=== PATIENT | male | born 1945 | race Two or more races ===

== ENCOUNTER 2017-07-15 16:55 | Observation (INO) | payer OTHER, MEDICARE ==
[~2017-07-15] VITALS: Ht 157.5 cm; Wt 63.9 kg
[~2017-07-15 16:55] MED LIST: ASPI-1265 PO; ATOR-2 PO; CHOL100044 PO; GABA-532 PO; HYDR-3964 PO; ISOS20TA6 PO; KRIL500C PO; LOSA25TA96 PO; METF500T PO; METO25TA6 PO; NITR0.4T48 SL; PANT40TA39 PO; SERT25TA PO; TICA90TA PO; TRAZ-146 PO
[2017-07-15 17:26] LABS: BASOPHILS % (AUTO) 0.3 % (0-1); EOSINOPHILS # (AUTO) 0.1 X10'3 (0-0.9); EOSINOPHILS % (AUTO) 1.9 % (0-6); HEMATOCRIT 38.4 % (42.0-52.0); HEMOGLOBIN 13.2 g/dl (14.0-17.9); LYMPHOCYTES # (AUTO) 1.1 X10'3 (1.1-4.8); LYMPHOCYTES % (AUTO) 25.1 % (21-51); MEAN CORPUSCULAR HEMOGLOBIN 30.5 PG (27.0-31.0); MEAN CORPUSCULAR HGB CONC 34.5 % (33.0-36.5); MEAN CORPUSCULAR VOLUME 88.5 FL (78-98); MEAN PLATELET VOLUME 11.4 FL (7.4-10.4); MONOCYTES # (AUTO) 0.3 X10'3 (0-0.9); MONOCYTES % (AUTO) 7.2 % (2-12); NEUTROPHILS % (AUTO) 65.5 % (42-75); PLATELET COUNT 107 X10'3 (140-440); RED BLOOD COUNT 4.34 X10'6 (4.70-6.10); RED CELL DISTRIBUTION WIDTH 15.9 % (11.5-14.5); WHITE BLOOD COUNT 4.6 X10'3 (4.5-11.0)
[2017-07-15 17:37] LABS: INR 1.1 INR; PARTIAL THROMBOPLASTIN TIME 29 SECONDS (22-32); PROTHROMBIN TIME 11.5 SECONDS (9.0-12.0)
[2017-07-15 17:41] LABS: ALANINE AMINOTRANSFERASE 64 U/L (12-78); ALBUMIN 3.4 G/DL (3.4-5.0); ALBUMIN/GLOBULIN RATIO 0.8 (1.1-1.5); ALKALINE PHOSPHATASE 189 IU/L (46-116); ANION GAP 8 (8-16); ASPARTATE AMINO TRANSFERASE 62 U/L (10-37); BILIRUBIN,TOTAL 0.5 MG/DL (0.1-1.0); BLOOD UREA NITROGEN 13 MG/DL (7-18); BUN/CREATININE RATIO 10.1 (5.4-32.0); CALCIUM 8.7 MG/DL (8.5-10.1); CHLORIDE 97 MMOL/L (99-107); CREATININE 1.29 MG/DL (0.60-1.10); POTASSIUM 4.2 MMOL/L (3.5-5.1); SODIUM 131 MMOL/L (135-145); TOTAL CARBON DIOXIDE 26.1 MMOL/L (24-32); TOTAL PROTEIN 7.7 G/DL (6.4-8.2); eGFR 55 ML/MIN
[2017-07-15 17:47] LABS: GLUCOSE 481 MG/DL (70-104)
[2017-07-15] MEDS ORDERED: nitroGLYCERIN 0.4mg SUBLingual tab SL PRN ×2 (19:25→21:15)
[2017-07-15] MEDS ORDERED: aspirin 81mg tab.chew PO ONE (19:25)
[2017-07-15] MEDS ORDERED: RANO10003 PO (20:35)
[2017-07-15] MEDS ORDERED: acetaminophen 325mg tablet PO PRN (21:10)
[2017-07-15] MEDS ORDERED: ondansetron/PF 4mg/2ml inj IV PRN (21:10)
[2017-07-15] MEDS ORDERED: regadenoson 0.4mg/5ml syringe IV PRN (21:15)
[2017-07-15] MEDS ORDERED: glucagon, human recombinant 1mg kit SUBCUT PRN (21:15)
[2017-07-15] MEDS ORDERED: MESSAGE TO PHARMACY PO ONE (21:15)
[2017-07-15] MEDS ORDERED: metoprolol tartrate 1mg/ml inj IV PRN (21:15)
[2017-07-15] MEDS ORDERED: dextrose ORAL solution 15 GM/59 ML bottle PO PRN ×2 (21:15)
[2017-07-15] MEDS ORDERED: dextrose 50%-water 50ml dispensing syringe IV PRN ×2 (21:15)
[2017-07-15] MEDS ORDERED: aminophylline 250mg/10ml inj. IV PRN (21:15)
[2017-07-15 22:03] LABS: HEMOGLOBIN A1C 9.3 % (4.5-6.2)
[2017-07-16] VITALS (26 sets, daily range): BP systolic 105–151; BP diastolic 58–86
[2017-07-16 04:50] LABS: BASOPHILS % (AUTO) 0.5 % (0-1); EOSINOPHILS # (AUTO) 0.2 X10'3 (0-0.9); EOSINOPHILS % (AUTO) 3.1 % (0-6); HEMATOCRIT 36.3 % (42.0-52.0); HEMOGLOBIN 12.9 g/dl (14.0-17.9); LYMPHOCYTES # (AUTO) 1.7 X10'3 (1.1-4.8); LYMPHOCYTES % (AUTO) 33.2 % (21-51); MEAN CORPUSCULAR HGB CONC 35.6 % (33.0-36.5); MEAN PLATELET VOLUME 9.6 FL (7.4-10.4); MONOCYTES # (AUTO) 0.4 X10'3 (0-0.9); MONOCYTES % (AUTO) 7.9 % (2-12); NEUTROPHILS # (AUTO) 2.8 X10'3 (1.8-7.7); NEUTROPHILS % (AUTO) 55.3 % (42-75); PLATELET COUNT 111 X10'3 (140-440); RED BLOOD COUNT 4.18 X10'6 (4.70-6.10); RED CELL DISTRIBUTION WIDTH 15.7 % (11.5-14.5); WHITE BLOOD COUNT 5.1 X10'3 (4.5-11.0)
[2017-07-16 05:08] LABS: ALBUMIN 3.1 G/DL (3.4-5.0); ANION GAP 9 (8-16); BLOOD UREA NITROGEN 13 MG/DL (7-18); CALCIUM 8.8 MG/DL (8.5-10.1); CHLORIDE 102 MMOL/L (99-107); CHOL/HDL RATIO 2.4 (0.00-4.99); CHOLESTEROL 107 MG/DL (0-200); GLUCOSE 257 MG/DL (70-104); HDL CHOLESTEROL 45 MG/DL (35-60); LDL CHOLESTEROL 37 MG/DL (50-100); POTASSIUM 4.1 MMOL/L (3.5-5.1); SODIUM 136 MMOL/L (135-145); TOTAL CARBON DIOXIDE 25.1 MMOL/L (24-32); TRIGLYCERIDES 102 MG/DL (20-135); eGFR 73 ML/MIN
[2017-07-16] MEDS ORDERED: non-formulary drug (Atorvastatin Calcium 1 TAB) PO SCH (08:00)
[2017-07-16] MEDS ORDERED: isosorbide mononitrate 30mg tab.SR.24H PO SCH ×2 (08:00→18:54)
[2017-07-16] MEDS ORDERED: ISOSORBIDE MONONITRATE 60 MG PO SCH (08:00)
[2017-07-16] MEDS ORDERED: regadenoson 0.4mg/5ml syringe IV ONE (09:10)
[2017-07-16] MEDS ORDERED: aminophylline inj. 10 ML IV ONE (09:10)
[2017-07-16] MEDS: atorvastatin 20mg tablet PO SCH (11:54)
[2017-07-16] MEDS: aspirin 81mg tablet.DR PO SCH (11:54)
[2017-07-16] MEDS: ticagrelor 90mg tablet PO SCH ×2 (11:54→21:09)
[2017-07-16] MEDS: losartan 25mg tablet PO SCH (11:54)
[2017-07-16] MEDS: gabapentin 300mg capsule PO SCH (11:55)
[2017-07-16] MEDS: sertraline 50mg tablet PO SCH (11:55)
[2017-07-16] MEDS: pantoprazole 40mg Tablet.DR PO SCH ×2 (11:55→21:10)
[2017-07-16] MEDS: metoprolol tartrate 12.5mg (1/2 tablet) PO SCH ×2 (11:55→21:08)
[2017-07-16] MEDS: insulin Lispro (HumaLOG) vial - multi-dose SQ SCH (13:39)
[2017-07-16] MEDS ORDERED: LIDOcaine 1%/PF (10mg/ml) 5ml vial ONE (16:58)
[2017-07-16] MEDS ORDERED: fentaNYL/PF 50MCG/1 ML 2ML syringe ONE (16:58)
[2017-07-16] MEDS ORDERED: midazolam 2 mg/2 ml injection ONE (16:58)
[2017-07-16] MEDS ORDERED: nitroGLYCERIN-Tridil 50MG/D5W 250 ML IV ONE (16:58)
[2017-07-16] MEDS ORDERED: heparin 1,000unit/ml 10ml vial 10 ML ONE (16:59)
[2017-07-16] MEDS ORDERED: iohexol 350MG/ML 100ml bottle IV ONE ×2 (16:59→17:45)
[2017-07-16] MEDS ORDERED: iohexol 350 MG/ML 50ML vial IV ONE (16:59)
[2017-07-16] MEDS ORDERED: proCHLORperazine 10 MG/2 ml inj IV PRN (19:00)
[2017-07-16] MEDS ORDERED: cyclobenzaprine 10mg tablet PO PRN (19:00)
[2017-07-16] MEDS ORDERED: acetaminophen 325mg tablet PO PRN (19:00)
[2017-07-16] MEDS ORDERED: magnesium hydroxide 30ml (MOM) UD suspension PO PRN (19:00)
[2017-07-16] MEDS ORDERED: normal saline 1000ml 1,000 ML IV SCH (19:05)
[2017-07-16] MEDS ORDERED: OXAZEpam 15mg capsule PO PRN (19:05)
[2017-07-16] MEDS: morphine 4 MG/ML inj SYRINge IV PRN ×3 (20:00→23:01)
[2017-07-16] MEDS ORDERED: insulin glargine (Lantus) pen - multi-dose SQ SCH (21:00)
[2017-07-16] MEDS ORDERED: gabapentin 300mg capsule PO SCH (21:00)
[2017-07-16] MEDS: docusate sod 100mg capsule PO SCH (21:09)
[2017-07-16] MEDS: LIDOCAINE 5% OINTMENT 35GM TP SCH (23:02)
[2017-07-17] MEDS: morphine 4 MG/ML inj SYRINge IV PRN ×3 (00:12→09:46)
[2017-07-17 03:00] VITALS: BP 105/64
[2017-07-17 05:34] LABS: BASOPHILS % (AUTO) 0.3 % (0-1); EOSINOPHILS # (AUTO) 0.2 X10'3 (0-0.9); EOSINOPHILS % (AUTO) 2.3 % (0-6); HEMATOCRIT 36.5 % (42.0-52.0); HEMOGLOBIN 12.6 g/dl (14.0-17.9); LYMPHOCYTES # (AUTO) 2.2 X10'3 (1.1-4.8); LYMPHOCYTES % (AUTO) 31.2 % (21-51); MEAN CORPUSCULAR HEMOGLOBIN 30.5 PG (27.0-31.0); MEAN CORPUSCULAR HGB CONC 34.5 % (33.0-36.5); MEAN CORPUSCULAR VOLUME 88.6 FL (78-98); MEAN PLATELET VOLUME 10.9 FL (7.4-10.4); MONOCYTES # (AUTO) 0.6 X10'3 (0-0.9); MONOCYTES % (AUTO) 8.8 % (2-12); NEUTROPHILS # (AUTO) 4.1 X10'3 (1.8-7.7); NEUTROPHILS % (AUTO) 57.4 % (42-75); PLATELET COUNT 135 X10'3 (140-440); RED BLOOD COUNT 4.11 X10'6 (4.70-6.10); RED CELL DISTRIBUTION WIDTH 15.6 % (11.5-14.5); WHITE BLOOD COUNT 7.2 X10'3 (4.5-11.0)
[2017-07-17 05:46] LABS: ANION GAP 8 (8-16); BLOOD UREA NITROGEN 13 MG/DL (7-18); BUN/CREATININE RATIO 12.4 (5.4-32.0); CALCIUM 8.7 MG/DL (8.5-10.1); CHLORIDE 100 MMOL/L (99-107); CREATININE 1.05 MG/DL (0.60-1.10); GLUCOSE 251 MG/DL (70-104); POTASSIUM 3.9 MMOL/L (3.5-5.1); SODIUM 133 MMOL/L (135-145); TOTAL CARBON DIOXIDE 25.1 MMOL/L (24-32); eGFR 69 ML/MIN
[2017-07-17 06:00] VITALS: BP 123/61
[2017-07-17] MEDS: insulin Lispro (HumaLOG) vial - multi-dose SQ SCH ×2 (08:49→13:15)
[2017-07-17] MEDS: docusate sod 100mg capsule PO SCH (08:52)
[2017-07-17] MEDS: sertraline 50mg tablet PO SCH (08:52)
[2017-07-17] MEDS: aspirin 81mg tablet.DR PO SCH (08:54)
[2017-07-17] MEDS: losartan 25mg tablet PO SCH (08:54)
[2017-07-17] MEDS: metoprolol tartrate 12.5mg (1/2 tablet) PO SCH (08:55)
[2017-07-17] MEDS: pantoprazole 40mg Tablet.DR PO SCH (08:55)
[2017-07-17] MEDS: gabapentin 300mg capsule PO SCH (08:57)
[2017-07-17] MEDS: atorvastatin 20mg tablet PO SCH (08:57)
[2017-07-17] MEDS: ticagrelor 90mg tablet PO SCH (08:57)
[2017-07-17] MEDS: LIDOCAINE 5% OINTMENT 35GM TP SCH (08:58)
[2017-07-17 11:00] VITALS: BP 138/72
[2017-07-17] MEDS ORDERED: METO25TA6 PO (11:33)
== END 2017-07-17 15:00 | disposition home or self-care (01) ==
LOC: ER 16:55 → ED HOLD 21:08 → EDBEDREQ 07-16 00:27 → ORTHO 4S 07-16 00:48 → PCU 3S 07-16 18:30
PROVIDERS: ADMIT Family Medicine; ATTEND Family Medicine
DX: T82.855A Stenosis of coronary artery stent, initial encounter (principal); I25.110 Atherosclerotic heart disease of native coronary artery with unstable angina pectoris; E78.5 Hyperlipidemia, unspecified; E78.00 Pure hypercholesterolemia, unspecified; E11.9 Type 2 diabetes mellitus without complications; J44.9 Chronic obstructive pulmonary disease, unspecified; I10 Essential (primary) hypertension; Y83.8 Other surgical procedures as the cause of abnormal reaction of the patient, or of later complication, without mention of misadventure at the time of the procedure; Y92.89 Other specified places as the place of occurrence of the external cause; Z86.73 Personal history of transient ischemic attack (TIA), and cerebral infarction without residual deficits; Z87.891 Personal history of nicotine dependence; Z95.1 Presence of aortocoronary bypass graft; Z95.5 Presence of coronary angioplasty implant and graft; Z82.49 Family history of ischemic heart disease and other diseases of the circulatory system; Z80.3 Family history of malignant neoplasm of breast; Z79.82 Long term (current) use of aspirin; Z79.84 Long term (current) use of oral hypoglycemic drugs; Z79.899 Other long term (current) drug therapy
CPT/HCPCS: 36415; 71045; 78452; 80048; 80053; 80061; 82948; 83036; 83880; 84484; 85025; 85610; 85730; 87070; 93005; 93017; 93306; 93459; 96372; 96374; 96376; 99285; A6257; A9500; C1760; C1769; G0378; J0280; J1644; J1815; J2001; J2250; J2270; J3010; J3490; J7030; Q9967; 99152; 99153; A4620

== ENCOUNTER 2018-07-01 16:32 | Emergency (ER) | payer MEDICARE, OTHER ==
[~2018-07-01] VITALS: Ht 167.6 cm; Wt 65.9 kg
[~2018-07-01 16:32] MED LIST changes: +RANO10003 PO; -TRAZ-146 PO; +TRAZ-219 PO
[2018-07-01 17:16] LABS: INR 1.2 INR; PARTIAL THROMBOPLASTIN TIME 35 SECONDS (22-32)
[2018-07-01 17:18] LABS: ALANINE AMINOTRANSFERASE 41 U/L (12-78); ALBUMIN 2.7 G/DL (3.4-5.0); ALBUMIN/GLOBULIN RATIO 0.7 (1.1-1.5); ALKALINE PHOSPHATASE 310 IU/L (46-116); ANION GAP 11 (8-16); ASPARTATE AMINO TRANSFERASE 67 U/L (10-37); BLOOD UREA NITROGEN 15 MG/DL (7-18); BUN/CREATININE RATIO 18.1 (5.4-32.0); CHLORIDE 106 MMOL/L (99-107); CREATININE 0.83 MG/DL (0.60-1.10); GLUCOSE 224 MG/DL (70-104); SODIUM 140 MMOL/L (135-145); TOTAL CARBON DIOXIDE 23.5 MMOL/L (24-32); TOTAL PROTEIN 6.7 G/DL (6.4-8.2); eGFR > 90 ML/MIN
[2018-07-01 17:40] LABS: BASOPHILS % (AUTO) 0.6 % (0-1); EOSINOPHILS # (AUTO) 0.1 X10'3 (0-0.9); EOSINOPHILS % (AUTO) 2.1 % (0-6); HEMATOCRIT 34.4 % (42.0-52.0); HEMOGLOBIN 11.9 g/dl (14.0-17.9); LYMPHOCYTES # (AUTO) 0.4 X10'3 (1.1-4.8); LYMPHOCYTES % (AUTO) 10.7 % (21-51); MEAN CORPUSCULAR HGB CONC 34.4 g/dL (33.0-36.5); MEAN CORPUSCULAR VOLUME 92.9 FL (78-98); MEAN PLATELET VOLUME 10.2 FL (7.4-10.4); MONOCYTES # (AUTO) 0.4 X10'3 (0-0.9); MONOCYTES % (AUTO) 9.2 % (2-12); NEUTROPHILS # (AUTO) 3.3 X10'3 (1.8-7.7); NEUTROPHILS % (AUTO) 77.4 % (42-75); PLATELET COUNT 72 X10'3 (140-440); RED BLOOD COUNT 3.71 X10'6 (4.70-6.10); RED CELL DISTRIBUTION WIDTH 16.3 % (11.5-14.5); WHITE BLOOD COUNT 4.2 X10'3 (4.5-11.0)
--- NOTE | 2018-07-01 18:42 | NUR ---
DR GALLO AT BEDSIDE. PT'S AND FRIENDS AT BEDSIDE. PT WITH STABLE VS AND DENIES ANY SIGNIFICANT PAIN. REPORTS THESE IS "A TINY BIT" OF CP TO HIS LEFT CHEST STILL AND IT IS INTERMITTENT.
--- NOTE | 2018-07-01 19:59 | NUR ---
awaiting result of 2 hr trop. REPEAT EKG COMPLETED.
[2018-07-01 20:14] VITALS: BP 124/69
--- NOTE | 2018-07-01 20:14 | NUR ---
DR GALLO TALKING WITH PT AND HIS AND WILL BE DISCHARGING HIM SOON.
== END 2018-07-01 20:27 | disposition home or self-care (01) ==
LOC: ER 16:32
DX: I25.119 Atherosclerotic heart disease of native coronary artery with unspecified angina pectoris (principal); E78.00 Pure hypercholesterolemia, unspecified; I10 Essential (primary) hypertension; J44.9 Chronic obstructive pulmonary disease, unspecified; E11.9 Type 2 diabetes mellitus without complications; Z98.61 Coronary angioplasty status; Z90.49 Acquired absence of other specified parts of digestive tract; Z98.890 Other specified postprocedural states; Z79.82 Long term (current) use of aspirin; Z79.899 Other long term (current) drug therapy
CPT/HCPCS: 36415; 71045; 80053; 84484; 85025; 85610; 85730; 93005; 99284

== ENCOUNTER 2018-07-09 12:43 | Outpatient (CLI) | payer OTHER, MEDICARE | END 2018-07-09 23:59 | disposition home or self-care (01) | LOC: CARD DIAG 12:43 | PROVIDERS: ATTEND Orthopaedic Surgery | DX: I05.8 Other rheumatic mitral valve diseases (principal); I25.10 Atherosclerotic heart disease of native coronary artery without angina pectoris; I25.2 Old myocardial infarction; I10 Essential (primary) hypertension; J44.9 Chronic obstructive pulmonary disease, unspecified; E11.9 Type 2 diabetes mellitus without complications; Z98.890 Other specified postprocedural states; Z95.1 Presence of aortocoronary bypass graft; Z87.891 Personal history of nicotine dependence | CPT/HCPCS: 93306 ==

== ENCOUNTER 2019-04-03 15:38 | Emergency (ER) | payer MEDICARE, OTHER ==
[~2019-04-03] VITALS: Ht 167.6 cm; Wt 67.0 kg
[2019-04-03 16:25] LABS: BASOPHILS % (AUTO) 0.7 % (0-1); EOSINOPHILS # (AUTO) 0.1 X10'3 (0-0.9); EOSINOPHILS % (AUTO) 1.5 % (0-6); HEMATOCRIT 37.1 % (42.0-52.0); HEMOGLOBIN 12.8 g/dl (14.0-17.9); LYMPHOCYTES # (AUTO) 0.8 X10'3 (1.1-4.8); LYMPHOCYTES % (AUTO) 15.4 % (21-51); MEAN CORPUSCULAR HEMOGLOBIN 33.8 PG (27.0-31.0); MEAN CORPUSCULAR HGB CONC 34.5 g/dL (33.0-36.5); MEAN CORPUSCULAR VOLUME 98.1 FL (78-98); MEAN PLATELET VOLUME 10.5 FL (7.4-10.4); MONOCYTES # (AUTO) 0.5 X10'3 (0-0.9); NEUTROPHILS # (AUTO) 3.8 X10'3 (1.8-7.7); NEUTROPHILS % (AUTO) 73.4 % (42-75); PLATELET COUNT 65 X10'3 (140-440); RED BLOOD COUNT 3.78 X10'6 (4.70-6.10); RED CELL DISTRIBUTION WIDTH 15.3 % (11.5-14.5); WHITE BLOOD COUNT 5.2 X10'3 (4.5-11.0)
[2019-04-03 16:41] LABS: ALANINE AMINOTRANSFERASE 46 U/L (12-78); ALBUMIN 2.7 G/DL (3.4-5.0); ALBUMIN/GLOBULIN RATIO 0.6 (1.1-1.5); ALKALINE PHOSPHATASE 340 IU/L (46-116); ANION GAP 8 (8-16); ASPARTATE AMINO TRANSFERASE 67 U/L (10-37); BILIRUBIN,TOTAL 1.6 MG/DL (0.1-1.0); BLOOD UREA NITROGEN 13 MG/DL (7-18); CALCIUM 8.7 MG/DL (8.5-10.1); CHLORIDE 105 MMOL/L (99-107); CREATININE 0.93 MG/DL (0.60-1.10); GLUCOSE 225 MG/DL (70-104); SODIUM 137 MMOL/L (135-145); TOTAL CARBON DIOXIDE 24.2 MMOL/L (24-32); eGFR 79 ML/MIN
[2019-04-03 18:04] LABS: CLARITY,URINE CLEAR (Clear); GLUCOSE, URINE NEGATIVE (Neg); KETONES,URINE NEGATIVE (Neg); LEUKOCYTE ESTERASE ,URINE NEGATIVE (Neg); NITRITES, URINE NEGATIVE (Neg); OCCULT BLOOD,URINE NEGATIVE (Neg); PROTEIN,URINE TRACE mg/dl (Neg)
[2019-04-03 18:08] LABS: COLOR,URINE DARK YELLOW (Yellow); UA COLLECTION TYPE URINAL
[2019-04-03 18:10] LABS: BACTERIA,URINE NONE SEEN /HPF (Neg); CAL OXALATE CRYSTALS 2+ /HPF (NEGATIVE); MUCUS STRANDS NONE SEEN /LPF (Neg); RBC,URINE NONE SEEN /HPF (0-2); SQUAMOUS EPITHELIAL CELL,UR NONE SEEN /LPF (FEW); WBC,URINE NONE SEEN /HPF (0-4)
[2019-04-03 18:16] LABS: URINE AMPHETAMINE SCREEN NEGATIVE (Neg); URINE BARBITUATE SCREEN NEGATIVE (Neg); URINE BENZODIAZEPINES SCREEN POSITIVE (Neg); URINE CANNABINOID SCREEN NEGATIVE (Neg); URINE COCAINE SCREEN NEGATIVE (Neg); URINE METHADONE SCREEN NEGATIVE (Neg); URINE OPIATE SCREEN NEGATIVE (Neg); URINE PHENCYCLIDINE SCREEN NEGATIVE (Neg)
[2019-04-03 19:21] VITALS: BP 130/56
== END 2019-04-03 19:22 | disposition home or self-care (01) ==
LOC: ER 15:39
DX: E72.20 Disorder of urea cycle metabolism, unspecified (principal); K59.00 Constipation, unspecified; I25.10 Atherosclerotic heart disease of native coronary artery without angina pectoris; E78.00 Pure hypercholesterolemia, unspecified; I10 Essential (primary) hypertension; J44.9 Chronic obstructive pulmonary disease, unspecified; E11.9 Type 2 diabetes mellitus without complications; G89.29 Other chronic pain; F32.9 Major depressive disorder, single episode, unspecified; F10.99 Alcohol use, unspecified with unspecified alcohol-induced disorder; Z86.73 Personal history of transient ischemic attack (TIA), and cerebral infarction without residual deficits; Z98.61 Coronary angioplasty status; Z95.1 Presence of aortocoronary bypass graft; Z90.49 Acquired absence of other specified parts of digestive tract; Z98.890 Other specified postprocedural states; Z79.82 Long term (current) use of aspirin; Z79.84 Long term (current) use of oral hypoglycemic drugs; Y90.9 Presence of alcohol in blood, level not specified
CPT/HCPCS: 36415; 71045; 80053; 80305; 81001; 82140; 84484; 85025; 93005; 99284

== ENCOUNTER 2019-05-27 16:27 | Emergency (ER) | payer MEDICARE, OTHER ==
[~2019-05-27] VITALS: Ht 167.6 cm; Wt 66.2 kg
[~2019-05-27 16:27] MED LIST changes: -TRAZ-219 PO; +TRAZ-256 PO
[2019-05-27] MEDS ORDERED: normal saline 1000ml 1,000 ML IV ONE ×2 (17:40→18:50)
[2019-05-27] MEDS ORDERED: ondansetron/PF 4mg/2ml inj IV ONE (17:40)
[2019-05-27 18:07] LABS: ALANINE AMINOTRANSFERASE 65 U/L (12-78); ALBUMIN 2.8 G/DL (3.4-5.0); ALBUMIN/GLOBULIN RATIO 0.6 (1.1-1.5); ALKALINE PHOSPHATASE 321 IU/L (46-116); ANION GAP 4 (8-16); ASPARTATE AMINO TRANSFERASE 73 U/L (10-37); BILIRUBIN,TOTAL 1.3 MG/DL (0.1-1.0); BLOOD UREA NITROGEN 11 MG/DL (7-18); BUN/CREATININE RATIO 13.6 (5.4-32.0); CALCIUM 9.1 MG/DL (8.5-10.1); CHLORIDE 107 MMOL/L (99-107); CREATININE 0.81 MG/DL (0.60-1.10); GLUCOSE 162 MG/DL (70-104); POTASSIUM 4.2 MMOL/L (3.5-5.1); SODIUM 136 MMOL/L (135-145); TOTAL CARBON DIOXIDE 24.7 MMOL/L (24-32); TOTAL PROTEIN 7.2 G/DL (6.4-8.2); eGFR > 90 ML/MIN
[2019-05-27 18:15] LABS: BASOPHILS % (AUTO) 0.3 % (0-1); EOSINOPHILS # (AUTO) 0.1 X10'3 (0-0.9); EOSINOPHILS % (AUTO) 1.3 % (0-6); HEMATOCRIT 38.8 % (42.0-52.0); LYMPHOCYTES # (AUTO) 0.7 X10'3 (1.1-4.8); LYMPHOCYTES % (AUTO) 14.2 % (21-51); MEAN CORPUSCULAR HEMOGLOBIN 32.8 PG (27.0-31.0); MEAN CORPUSCULAR HGB CONC 33.6 g/dL (33.0-36.5); MEAN CORPUSCULAR VOLUME 97.6 FL (78-98); MONOCYTES # (AUTO) 0.4 X10'3 (0-0.9); NEUTROPHILS # (AUTO) 3.7 X10'3 (1.8-7.7); NEUTROPHILS % (AUTO) 76.2 % (42-75); PLATELET COUNT 55 X10'3 (140-440); RED BLOOD COUNT 3.98 X10'6 (4.70-6.10); RED CELL DISTRIBUTION WIDTH 16.4 % (11.5-14.5); WHITE BLOOD COUNT 4.8 X10'3 (4.5-11.0)
[2019-05-27 18:27] LABS: LIPASE 6383 U/L (73-393)
[2019-05-27 18:49] LABS: CLARITY,URINE CLEAR (Clear); COLOR,URINE YELLOW (Yellow); GLUCOSE, URINE NEGATIVE (Neg); KETONES,URINE NEGATIVE (Neg); LEUKOCYTE ESTERASE ,URINE NEGATIVE (Neg); NITRITES, URINE NEGATIVE (Neg); OCCULT BLOOD,URINE NEGATIVE (Neg); PH,URINE 5.5 (4.8-8.0); PROTEIN,URINE NEGATIVE (Neg); UROBILINOGEN,URINE 0.2 E.U/dL (0.2-1.0)
[2019-05-27 19:10] LABS: UA COLLECTION TYPE VOIDED
[2019-05-27] MEDS ORDERED: ONDA4TAB6 PO (19:44)
[2019-05-27 20:04] VITALS: BP 140/70
== END 2019-05-27 20:05 | disposition home or self-care (01) ==
LOC: ER 16:28
DX: K85.20 Alcohol induced acute pancreatitis without necrosis or infection (principal); I25.10 Atherosclerotic heart disease of native coronary artery without angina pectoris; E78.00 Pure hypercholesterolemia, unspecified; I10 Essential (primary) hypertension; J44.9 Chronic obstructive pulmonary disease, unspecified; E11.9 Type 2 diabetes mellitus without complications; G89.29 Other chronic pain; F32.9 Major depressive disorder, single episode, unspecified; Z98.61 Coronary angioplasty status; Z90.49 Acquired absence of other specified parts of digestive tract; Z95.1 Presence of aortocoronary bypass graft; Z86.73 Personal history of transient ischemic attack (TIA), and cerebral infarction without residual deficits; Z72.89 Other problems related to lifestyle; Z79.82 Long term (current) use of aspirin; Z79.899 Other long term (current) drug therapy; Z79.84 Long term (current) use of oral hypoglycemic drugs
CPT/HCPCS: 36415; 74176; 80053; 81003; 82140; 83690; 84484; 85025; 96361; 96374; 99284; J2405; J7030

== ENCOUNTER 2019-10-13 18:10 | Emergency (ER) | payer OTHER, MEDICARE ==
[~2019-10-13] VITALS: Ht 167.6 cm; Wt 64.1 kg
[~2019-10-13 18:10] MED LIST changes: -ISOS20TA6 PO; -LOSA25TA96 PO; +ONDA4TAB6 PO; -TICA90TA PO; +TICA90TA2 PO
[2019-10-13 19:32] VITALS: BP 105/58
== END 2019-10-13 19:36 | disposition home or self-care (01) ==
LOC: ER 18:11
DX: C22.0 Liver cell carcinoma (principal); R18.8 Other ascites; R14.0 Abdominal distension (gaseous); I25.10 Atherosclerotic heart disease of native coronary artery without angina pectoris; E78.00 Pure hypercholesterolemia, unspecified; I10 Essential (primary) hypertension; I25.2 Old myocardial infarction; J44.9 Chronic obstructive pulmonary disease, unspecified; E11.9 Type 2 diabetes mellitus without complications; G89.29 Other chronic pain; F32.9 Major depressive disorder, single episode, unspecified; Z86.73 Personal history of transient ischemic attack (TIA), and cerebral infarction without residual deficits; Z98.61 Coronary angioplasty status; Z90.49 Acquired absence of other specified parts of digestive tract; Z95.1 Presence of aortocoronary bypass graft; Z98.890 Other specified postprocedural states; Z88.8 Allergy status to other drugs, medicaments and biological substances; Z79.82 Long term (current) use of aspirin; Z79.899 Other long term (current) drug therapy
CPT/HCPCS: 99281

== ENCOUNTER 2019-11-06 16:55 | Emergency (ER) | payer OTHER, MEDICARE ==
[~2019-11-06] VITALS: Ht 167.6 cm; Wt 67.0 kg
[2019-11-06 19:11] VITALS: BP 109/60
== END 2019-11-06 19:16 | disposition home or self-care (01) ==
LOC: ER 16:57
DX: R18.8 Other ascites (principal); R14.0 Abdominal distension (gaseous); R06.02 Shortness of breath; I25.10 Atherosclerotic heart disease of native coronary artery without angina pectoris; E78.00 Pure hypercholesterolemia, unspecified; I10 Essential (primary) hypertension; I25.2 Old myocardial infarction; J44.9 Chronic obstructive pulmonary disease, unspecified; E11.9 Type 2 diabetes mellitus without complications; G89.29 Other chronic pain; F32.9 Major depressive disorder, single episode, unspecified; Z86.73 Personal history of transient ischemic attack (TIA), and cerebral infarction without residual deficits; Z98.61 Coronary angioplasty status; Z95.1 Presence of aortocoronary bypass graft; Z90.49 Acquired absence of other specified parts of digestive tract; Z98.890 Other specified postprocedural states; Z72.89 Other problems related to lifestyle; Z88.8 Allergy status to other drugs, medicaments and biological substances; Z79.82 Long term (current) use of aspirin; Z79.899 Other long term (current) drug therapy
CPT/HCPCS: 49083; 99284; 99285

== ENCOUNTER 2019-11-23 19:59 | Inpatient (IN) | payer OTHER, MEDICARE ==
[~2019-11-23] VITALS: Ht 167.6 cm; Wt 70.0 kg
[2019-11-23 20:46] LABS: ALANINE AMINOTRANSFERASE 52 U/L (12-78); ALKALINE PHOSPHATASE 334 IU/L (46-116); ANION GAP 3 (8-16); ASPARTATE AMINO TRANSFERASE 111 U/L (10-37); BILIRUBIN,TOTAL 4.4 MG/DL (0.1-1.0); BLOOD UREA NITROGEN 9 MG/DL (7-18); BUN/CREATININE RATIO 10.2 (5.4-32.0); CALCIUM 8.3 MG/DL (8.5-10.1); CHLORIDE 102 MMOL/L (99-107); CREATININE 0.88 MG/DL (0.60-1.10); GLUCOSE 152 MG/DL (70-104); POTASSIUM 3.7 MMOL/L (3.5-5.1); SODIUM 134 MMOL/L (135-145); TOTAL CARBON DIOXIDE 28.6 MMOL/L (24-32); eGFR 84 ML/MIN
[2019-11-23 20:53] LABS: ALBUMIN/GLOBULIN RATIO 0.4 (1.1-1.5); TOTAL PROTEIN 7.1 G/DL (6.4-8.2)
[2019-11-23 21:14] LABS: BASOPHILS % (AUTO) 0.5 % (0-1); EOSINOPHILS # (AUTO) 0.1 X10'3 (0-0.9); EOSINOPHILS % (AUTO) 2.7 % (0-6); HEMATOCRIT 32.8 % (42.0-52.0); HEMOGLOBIN 11.2 g/dl (14.0-17.9); LYMPHOCYTES # (AUTO) 0.5 X10'3 (1.1-4.8); LYMPHOCYTES % (AUTO) 11.3 % (21-51); MEAN CORPUSCULAR HEMOGLOBIN 35.4 PG (27.0-31.0); MEAN CORPUSCULAR HGB CONC 34.2 g/dL (33.0-36.5); MEAN CORPUSCULAR VOLUME 103.6 FL (78-98); MEAN PLATELET VOLUME 10.8 FL (7.4-10.4); MONOCYTES # (AUTO) 0.5 X10'3 (0-0.9); MONOCYTES % (AUTO) 11.3 % (2-12); NEUTROPHILS # (AUTO) 3.4 X10'3 (1.8-7.7); NEUTROPHILS % (AUTO) 74.2 % (42-75); RED BLOOD COUNT 3.16 X10'6 (4.70-6.10); RED CELL DISTRIBUTION WIDTH 14.9 % (11.5-14.5); WHITE BLOOD COUNT 4.6 X10'3 (4.5-11.0)
[2019-11-23 21:17] LABS: PLATELET COUNT 45 X10'3 (140-440)
[2019-11-23] MEDS ORDERED: ondansetron/PF 4mg/2ml inj IV PRN (22:15)
[2019-11-23] MEDS ORDERED: magnesium Cl slow-release 64mg tablet PO PRN (22:15)
[2019-11-23] MEDS ORDERED: HYDROmorphone inj. 0.5 MG/0.5 ML DISP.SYRIN IV PRN (22:15)
[2019-11-23] MEDS ORDERED: potassium Cl 20 mEq SR tablet PO PRN ×2 (22:15)
[2019-11-23] MEDS ORDERED: magnesium hydroxide 30ml (MOM) UD suspension PO PRN (22:15)
[2019-11-23] MEDS ORDERED: potassium CL 10mEq/100ml bag 100 ML IV PRN ×2 (22:15)
[2019-11-23] MEDS ORDERED: magnesium 4gm in 100ml NS 100 ML IV PRN (22:15)
[2019-11-23] MEDS ORDERED: mag hydrox/Alum hydrox/simeth 30ml oral suspension PO PRN (22:15)
[2019-11-23] MEDS ORDERED: acetaminophen 325mg tablet PO PRN (22:15)
[2019-11-23] MEDS ORDERED: magnesium 2GM in 50ml NS 50 ML IV PRN (22:15)
[2019-11-23] MEDS ORDERED: glucagon, human recombinant 1mg kit SUBCUT PRN (22:55)
[2019-11-23] MEDS ORDERED: insulin Lispro (HumaLOG) vial - multi-dose SQ SCH (22:55)
[2019-11-23] MEDS ORDERED: MESSAGE TO PHARMACY PO ONE (22:55)
[2019-11-23] MEDS ORDERED: dextrose 50%-water 50ml dispensing syringe IV PRN ×2 (22:55)
[2019-11-23] MEDS ORDERED: dextrose ORAL solution 15 GM/59 ML bottle PO PRN ×2 (22:55)
[2019-11-24 04:25] LABS: CLARITY,URINE SLIGHTLY CLOUDY (Clear); COLOR,URINE AMBER (Yellow); GLUCOSE, URINE NEGATIVE (Neg); KETONES,URINE NEGATIVE (Neg); LEUKOCYTE ESTERASE ,URINE NEGATIVE (Neg); NITRITES, URINE NEGATIVE (Neg); OCCULT BLOOD,URINE NEGATIVE (Neg); PROTEIN,URINE NEGATIVE (Neg); UROBILINOGEN,URINE >=8.0 E.U/dL (0.2-1.0)
[2019-11-24 04:31] LABS: UA COLLECTION TYPE CLN CATCH MIDSTREAM
[2019-11-24 04:33] LABS: CAL OXALATE CRYSTALS 3+ /HPF (NEGATIVE)
[2019-11-24 04:40] LABS: RBC,URINE NONE SEEN /HPF (0-2); WBC,URINE 0-4 /HPF (0-4)
[2019-11-24 04:41] LABS: BACTERIA,URINE 1+ /HPF (Neg); SQUAMOUS EPITHELIAL CELL,UR NONE SEEN /LPF (FEW)
[2019-11-24 06:43] LABS: BASOPHILS % (AUTO) 0.4 % (0-1); EOSINOPHILS # (AUTO) 0.1 X10'3 (0-0.9); EOSINOPHILS % (AUTO) 2.8 % (0-6); HEMATOCRIT 30.8 % (42.0-52.0); HEMOGLOBIN 10.8 g/dl (14.0-17.9); LYMPHOCYTES # (AUTO) 0.5 X10'3 (1.1-4.8); LYMPHOCYTES % (AUTO) 13.6 % (21-51); MEAN CORPUSCULAR HEMOGLOBIN 36.6 PG (27.0-31.0); MEAN CORPUSCULAR HGB CONC 35.1 g/dL (33.0-36.5); MEAN CORPUSCULAR VOLUME 104.2 FL (78-98); MEAN PLATELET VOLUME 9.8 FL (7.4-10.4); MONOCYTES # (AUTO) 0.4 X10'3 (0-0.9); MONOCYTES % (AUTO) 10.2 % (2-12); NEUTROPHILS # (AUTO) 2.7 X10'3 (1.8-7.7); RED BLOOD COUNT 2.96 X10'6 (4.70-6.10); WHITE BLOOD COUNT 3.7 X10'3 (4.5-11.0)
--- NOTE | 2019-11-24 06:46 | NUR ---
GOT REPORT FROM JANNETTE VINCENT IN ER
[2019-11-24 06:59] LABS: PLATELET COUNT 48 X10'3 (140-440)
[2019-11-24 07:00] VITALS: BP 104/71
[2019-11-24 07:01] LABS: ALANINE AMINOTRANSFERASE 45 U/L (12-78); ALBUMIN 1.6 G/DL (3.4-5.0); ALKALINE PHOSPHATASE 275 IU/L (46-116); ANION GAP 3 (8-16); ASPARTATE AMINO TRANSFERASE 90 U/L (10-37); BILIRUBIN,TOTAL 4.5 MG/DL (0.1-1.0); BLOOD UREA NITROGEN 8 MG/DL (7-18); BUN/CREATININE RATIO 10.1 (5.4-32.0); CALCIUM 8.2 MG/DL (8.5-10.1); CHLORIDE 106 MMOL/L (99-107); CREATININE 0.79 MG/DL (0.60-1.10); GLUCOSE 105 MG/DL (70-104); MAGNESIUM 1.7 MG/DL (1.5-2.4); SODIUM 137 MMOL/L (135-145); eGFR > 90 ML/MIN
--- NOTE | 2019-11-24 07:03 | NUR ---
CRITICAL PLT 48, PAGED DR RICHARD AWAITING CALL BACK
[2019-11-24 07:05] LABS: ALBUMIN/GLOBULIN RATIO 0.4 (1.1-1.5); TOTAL PROTEIN 5.9 G/DL (6.4-8.2)
[2019-11-24] MEDS: K and/or MAG REPLACEMENT MC SCH ×2 (08:00→18:31)
[2019-11-24] MEDS: docusate sod 100mg capsule PO SCH ×2 (09:06→19:29)
[2019-11-24] MEDS ORDERED: ROSU40TA PO (09:34)
[2019-11-24] MEDS ORDERED: METF-436 PO (10:01)
[2019-11-24] MEDS ORDERED: EZET10TA6 PO (10:01)
[2019-11-24] MEDS ORDERED: MULT-1219 PO (10:02)
[2019-11-24] MEDS ORDERED: DONE10TA7 PO (10:02)
[2019-11-24] MEDS ORDERED: MELA3TAB70 PO (10:02)
[2019-11-24] MEDS: aspirin 81mg tab.chew PO SCH (12:25)
[2019-11-24] MEDS ORDERED: nitroGLYCERIN 0.4mg SUBLingual tab SL PRN (12:25)
[2019-11-24] MEDS ORDERED: ondansetron 4mg rapidly disintigrating tab PO PRN (12:40)
[2019-11-24] MEDS: gabapentin 300mg capsule PO SCH (12:56)
[2019-11-24] MEDS: sertraline 50mg tablet PO SCH (12:57)
[2019-11-24] MEDS: ezetimibe 10mg tablet PO SCH (12:57)
--- NOTE | 2019-11-24 14:47 | NUR ---
Paulina BALTAAZR RM 344B: WHAT IS THE PLAN FOR PATIENT? HE IS COMPLAINING OF PAIN, DILAUDID 0.5 NOT HELPING. THANK YOU HAILEE 1252: PAGE DR RICHARD ABOUT PAIN MEDS FOR PATIENT, DOSE ORDERED NOT HELPING WITH PAIN. AWAITING CALL BACK Addendum: 11/24/19 at 1458 by Alanna Knapp RN Dr Richard called back ordered Dilaudid 1mg IV Q4h prn pain. Rocephin IV 1Gm Q24H, Dr Richard will look into a paracentesis for patient.
[2019-11-24] MEDS ORDERED: HYDROmorphone 1 mg/ml syringe IV PRN (14:55)
[2019-11-24] MEDS ORDERED: furosemide 40mg/4ml inj IV ONE (16:35)
[2019-11-24] MEDS: CefTRIAXone/D5W-Rocephin 1gm 50 ML IV SCH (17:12)
[2019-11-24] MEDS: HYDROcodone/acetaminophen 5mg/325mg tablet PO PRN (17:14)
--- NOTE | 2019-11-24 18:28 | NUR ---
Patient in room [facility]. I have received report from Lara BHATIA and had the opportunity to ask questions and assume patient care.
--- NOTE | 2019-11-24 18:31 | NUR ---
Problems reprioritized. Patient report given, questions answered & plan of care reviewed with JANNETTE SOUTH.
[2019-11-24 19:00] VITALS: BP 140/70
[2019-11-24] MEDS: metoprolol tartrate 25mg tablet PO SCH (19:29)
[2019-11-24] MEDS ORDERED: insulin glargine (Lantus) pen - multi-dose SQ SCH (21:00)
[2019-11-24] MEDS ORDERED: donepezil 5mg tablet PO SCH (21:00)
[2019-11-24] MEDS ORDERED: gabapentin 300mg capsule PO SCH (21:00)
[2019-11-24] MEDS ORDERED: Melatonin 3mg tablet PO SCH (21:00)
[2019-11-24] MEDS ORDERED: traZODone 50mg tablet PO SCH (21:00)
[2019-11-25] VITALS: BP 116/62
[2019-11-25 06:01] LABS: BASOPHILS % (AUTO) 0.6 % (0-1); EOSINOPHILS # (AUTO) 0.1 X10'3 (0-0.9); EOSINOPHILS % (AUTO) 4.2 % (0-6); HEMATOCRIT 30.1 % (42.0-52.0); HEMOGLOBIN 10.3 g/dl (14.0-17.9); LYMPHOCYTES # (AUTO) 0.4 X10'3 (1.1-4.8); LYMPHOCYTES % (AUTO) 13.6 % (21-51); MEAN CORPUSCULAR HEMOGLOBIN 35.6 PG (27.0-31.0); MEAN CORPUSCULAR HGB CONC 34.3 g/dL (33.0-36.5); MEAN PLATELET VOLUME 10.1 FL (7.4-10.4); MONOCYTES # (AUTO) 0.4 X10'3 (0-0.9); MONOCYTES % (AUTO) 12.2 % (2-12); NEUTROPHILS # (AUTO) 2.3 X10'3 (1.8-7.7); NEUTROPHILS % (AUTO) 69.4 % (42-75); RED CELL DISTRIBUTION WIDTH 15.4 % (11.5-14.5); WHITE BLOOD COUNT 3.3 X10'3 (4.5-11.0)
[2019-11-25 06:12] LABS: PLATELET COUNT 45 X10'3 (140-440)
--- NOTE | 2019-11-25 06:13 | NUR ---
Problems reprioritized. Patient report given, questions answered & plan of care reviewed with Shreya BHATIA. Patient resting comfortably at time of report.
[2019-11-25 06:17] LABS: ALANINE AMINOTRANSFERASE 39 U/L (12-78); ALBUMIN 1.5 G/DL (3.4-5.0); ALBUMIN/GLOBULIN RATIO 0.4 (1.1-1.5); ALKALINE PHOSPHATASE 263 IU/L (46-116); ANION GAP 2 (8-16); ASPARTATE AMINO TRANSFERASE 75 U/L (10-37); BILIRUBIN,TOTAL 3.3 MG/DL (0.1-1.0); BLOOD UREA NITROGEN 10 MG/DL (7-18); BUN/CREATININE RATIO 10.1 (5.4-32.0); CHLORIDE 104 MMOL/L (99-107); CREATININE 0.99 MG/DL (0.60-1.10); GLUCOSE 152 MG/DL (70-104); MAGNESIUM 1.7 MG/DL (1.5-2.4); POTASSIUM 3.9 MMOL/L (3.5-5.1); SODIUM 136 MMOL/L (135-145); TOTAL CARBON DIOXIDE 29.8 MMOL/L (24-32); TOTAL PROTEIN 5.6 G/DL (6.4-8.2); eGFR 74 ML/MIN
[2019-11-25] MEDS ORDERED: LACT10SO PO (07:33)
--- NOTE | 2019-11-25 07:37 | NUR ---
PAGER ID: [phone] MESSAGE: Kevin Elizabethnandez [id number]- FYI no call from lab but pt. critical plts. at 45. Has been low since admit. Please look at lactulose on med. req. when you can. Thank you! Shreya [phone]
[2019-11-25] MEDS: sertraline 50mg tablet PO SCH (07:51)
[2019-11-25] MEDS: HYDROcodone/acetaminophen 5mg/325mg tablet PO PRN (07:51)
[2019-11-25] MEDS: ezetimibe 10mg tablet PO SCH (07:52)
[2019-11-25] MEDS: aspirin 81mg tab.chew PO SCH ×2 (07:52→07:56)
[2019-11-25] MEDS: gabapentin 300mg capsule PO SCH (07:52)
[2019-11-25] MEDS: docusate sod 100mg capsule PO SCH (07:52)
[2019-11-25] MEDS: CefTRIAXone/D5W-Rocephin 1gm 50 ML IV SCH (07:53)
[2019-11-25] MEDS: K and/or MAG REPLACEMENT MC SCH (07:53)
[2019-11-25] MEDS: metoprolol tartrate 25mg tablet PO SCH (07:53)
[2019-11-25 08:00] VITALS: BP_SYST 105; BP_SYST 121; BP_DIAS 50; BP_DIAS 71
[2019-11-25] MEDS ORDERED: vitamin D (cholecalciferol) 1,000 unit tablet PO SCH (08:00)
[2019-11-25] MEDS ORDERED: KRILL OIL PO SCH (08:00)
[2019-11-25] MEDS ORDERED: multivitamins, therapeutics tablet PO SCH (08:00)
[2019-11-25] MEDS ORDERED: atorvastatin 20mg tablet PO SCH (08:00)
[2019-11-25 11:48] VITALS: BP 108/61
[2019-11-25 11:52] VITALS: BP 127/82
[2019-11-25] MEDS ORDERED: albumin (human) 25% 100 ML IV solution IV ONE ×2 (12:40→14:20)
[2019-11-25 12:42] VITALS: BP 95/57
--- NOTE | 2019-11-25 13:18 | NUR ---
Malnutrition consult: Pt reports 2-13 lb wt loss with decreased appetite per malnutrition risk screen with RN. Pt with scaled wt hx of 67 kg taken 10/08 with a bed scale, current documented wt is 70 kg. Pt with hx liver cancer and per records pt with 3.9L fluid removed at paracentesis 10/07 and s/p paracentesis this admit with 8L fluid removed. Likely pt with fluctuations in weight r/t changes in fluid status. Pt currently on a CHO controlled diet documented with 50-75% PO intake up to 100% PO intake at breakfast this morning meeting nutrient needs. No documented decrease in muscle strength or edema. Pt currently lacks a minimum of two criteria for malnutrition. Will continue to follow. Addendum: 11/25/19 at [address] Amended: Links added.
--- NOTE | 2019-11-25 16:03 | NUR ---
DISCHARGED IN A STABLE CONDITION. IV DC'D PRESSURE BANDAGE APPLIED, NO S/SX BLEEDING NOTED. MD AWARE OF PLATELETS. REVIEWED DISCHARGE PAPERWORK WITH PT. NO NEW MEDICATIONS ON DISCHARGE. ESCORTED TO DOWNSTAIRS.
[2019-11-25] MEDS ORDERED: lactobacillus rhamnosus 10,000 MMU CELLS/CAPSULE PO SCH (20:00)
== END 2019-11-25 16:05 | disposition home or self-care (01) | DRG 436 ==
LOC: ER 19:59 → ED HOLD 22:14 → SUR 3N 11-24 06:45
PROVIDERS: ADMIT Family Medicine; ATTEND Internal Medicine
PROC: 0W9G3ZZ Drainage of Peritoneal Cavity, Percutaneous Approach (ICD-10-PCS; principal; 2019-11-25)
DX: C22.9 Malignant neoplasm of liver, not specified as primary or secondary (principal); R18.0 Malignant ascites; R06.00 Dyspnea, unspecified; E11.9 Type 2 diabetes mellitus without complications; E78.5 Hyperlipidemia, unspecified; I10 Essential (primary) hypertension; I25.10 Atherosclerotic heart disease of native coronary artery without angina pectoris; E78.00 Pure hypercholesterolemia, unspecified; J44.9 Chronic obstructive pulmonary disease, unspecified; G89.29 Other chronic pain; M54.9 Dorsalgia, unspecified; K74.60 Unspecified cirrhosis of liver; Z90.49 Acquired absence of other specified parts of digestive tract; I25.2 Old myocardial infarction; Z88.8 Allergy status to other drugs, medicaments and biological substances; Z86.73 Personal history of transient ischemic attack (TIA), and cerebral infarction without residual deficits; Z95.5 Presence of coronary angioplasty implant and graft; Z82.49 Family history of ischemic heart disease and other diseases of the circulatory system; Z79.84 Long term (current) use of oral hypoglycemic drugs; Z79.899 Other long term (current) drug therapy; Z85.05 Personal history of malignant neoplasm of liver; Z95.0 Presence of cardiac pacemaker; Z95.1 Presence of aortocoronary bypass graft
CPT/HCPCS: 36415; 49083; 71046; 80053; 81001; 82948; 83735; 83880; 85025; 87040; 87081; 93005; 97110; 97161; 97530; 99285; G0378; J0696; J1170; J1815; J1940; P9047

== ENCOUNTER 2020-01-02 20:19 | Emergency (ER) | payer MEDICARE, OTHER ==
[~2020-01-02] VITALS: Ht 167.6 cm; Wt 70.9 kg
[~2020-01-02 20:19] MED LIST changes: -ATOR-2 PO; +DONE10TA7 PO; +EZET10TA6 PO; +LACT10SO PO; +MELA3TAB70 PO; +METF-436 PO; -METF500T PO; +MULT-1219 PO; -RANO10003 PO; +ROSU40TA PO; -TICA90TA2 PO
--- NOTE | 2020-01-02 20:56 | NUR ---
Pt given urinal to obtain urine sample.
[2020-01-02 21:44] LABS: ALANINE AMINOTRANSFERASE 30 U/L (12-78); ALBUMIN 1.7 G/DL (3.4-5.0); ALKALINE PHOSPHATASE 253 IU/L (46-116); ANION GAP 4 (8-16); ASPARTATE AMINO TRANSFERASE 56 U/L (10-37); BILIRUBIN,TOTAL 3.9 MG/DL (0.1-1.0); BLOOD UREA NITROGEN 14 MG/DL (7-18); BUN/CREATININE RATIO 14.1 (5.4-32.0); CHLORIDE 104 MMOL/L (99-107); CREATININE 0.99 MG/DL (0.60-1.10); GLUCOSE 129 MG/DL (70-104); LIPASE 266 U/L (73-393); POTASSIUM 3.8 MMOL/L (3.5-5.1); SODIUM 136 MMOL/L (135-145); TOTAL CARBON DIOXIDE 28.3 MMOL/L (24-32); eGFR 74 ML/MIN
[2020-01-02 21:45] LABS: ALBUMIN/GLOBULIN RATIO 0.4 (1.1-1.5); TOTAL PROTEIN 6.3 G/DL (6.4-8.2)
[2020-01-02 22:00] LABS: BASOPHILS % (AUTO) 0.5 % (0-1); EOSINOPHILS # (AUTO) 0.1 X10'3 (0-0.9); EOSINOPHILS % (AUTO) 1.5 % (0-6); HEMATOCRIT 31.9 % (42.0-52.0); HEMOGLOBIN 10.7 g/dl (14.0-17.9); LYMPHOCYTES # (AUTO) 0.3 X10'3 (1.1-4.8); LYMPHOCYTES % (AUTO) 9.2 % (21-51); MEAN CORPUSCULAR HEMOGLOBIN 36.1 PG (27.0-31.0); MEAN CORPUSCULAR HGB CONC 33.4 g/dL (33.0-36.5); MEAN CORPUSCULAR VOLUME 107.9 FL (78-98); MEAN PLATELET VOLUME 11.1 FL (7.4-10.4); MONOCYTES # (AUTO) 0.3 X10'3 (0-0.9); MONOCYTES % (AUTO) 8.2 % (2-12); NEUTROPHILS # (AUTO) 2.9 X10'3 (1.8-7.7); NEUTROPHILS % (AUTO) 80.6 % (42-75); PLATELET COUNT 66 X10'3 (140-440); RED BLOOD COUNT 2.96 X10'6 (4.70-6.10); RED CELL DISTRIBUTION WIDTH 17.4 % (11.5-14.5); WHITE BLOOD COUNT 3.6 X10'3 (4.5-11.0)
[2020-01-02 22:06] LABS: CLARITY,URINE CLEAR (Clear); GLUCOSE, URINE 100 mg/dl (Neg); KETONES,URINE NEGATIVE (Neg); LEUKOCYTE ESTERASE ,URINE NEGATIVE (Neg); NITRITES, URINE NEGATIVE (Neg); OCCULT BLOOD,URINE NEGATIVE (Neg); PH,URINE 5.5 (4.8-8.0); PROTEIN,URINE NEGATIVE (Neg)
[2020-01-02 22:07] LABS: COLOR,URINE AMBER (Yellow); UA COLLECTION TYPE URINAL
[2020-01-03 01:32] LABS: BF WBC COUNT 58 /CU MM (0-1000); BFAPPEAR CLEAR; BFCOLOR YELLOW; BFVOLUME 70 ML
[2020-01-03 01:33] LABS: BF MESOTHELIAL CELLS FEW; BF RBC COUNT 53 /CU MM; LYMPHOCYTES,BODY FLUID 34 %; MONOCYTES,BODY FLUID 58 %; NEUTROPHILS,BODY FLUID 8 %
[2020-01-03 01:50] VITALS: BP 105/66
== END 2020-01-03 01:53 | disposition home or self-care (01) ==
LOC: ER 20:20
DX: R18.8 Other ascites (principal); R14.0 Abdominal distension (gaseous); I25.10 Atherosclerotic heart disease of native coronary artery without angina pectoris; E78.00 Pure hypercholesterolemia, unspecified; I10 Essential (primary) hypertension; I25.2 Old myocardial infarction; J44.9 Chronic obstructive pulmonary disease, unspecified; E11.9 Type 2 diabetes mellitus without complications; G89.29 Other chronic pain; F32.9 Major depressive disorder, single episode, unspecified; Z86.73 Personal history of transient ischemic attack (TIA), and cerebral infarction without residual deficits; Z85.9 Personal history of malignant neoplasm, unspecified; Z98.61 Coronary angioplasty status; Z90.49 Acquired absence of other specified parts of digestive tract; Z95.1 Presence of aortocoronary bypass graft; Z98.890 Other specified postprocedural states; Z88.8 Allergy status to other drugs, medicaments and biological substances; Z79.82 Long term (current) use of aspirin; Z79.899 Other long term (current) drug therapy
CPT/HCPCS: 36415; 49083; 80053; 81003; 83690; 85025; 85610; 87070; 87205; 89051; 99285

== ENCOUNTER 2020-01-05 07:01 | Day surgery (SDC) | payer MEDICARE, OTHER ==
[2020-01-05] VITALS (7 sets, daily range): BP systolic 100–114; BP diastolic 50–64
[~2020-01-05] VITALS: Ht 167.6 cm; Wt 70.5 kg
[2020-01-05] MEDS ORDERED: albumin 25% 100mL bottle x 1 IV PRN (07:35)
[2020-01-05] MEDS ORDERED: PRED20TA PO (18:34)
[2020-01-05] MEDS ORDERED: ALBU6.7H9 INH (18:34)
== END 2020-01-05 10:55 | disposition home or self-care (01) ==
LOC: SSTAY O 07:01
PROVIDERS: ATTEND Radiology Vascular & Interventional Radiology
DX: R18.8 Other ascites (principal); I25.10 Atherosclerotic heart disease of native coronary artery without angina pectoris; E78.00 Pure hypercholesterolemia, unspecified; I10 Essential (primary) hypertension; I25.2 Old myocardial infarction; J44.9 Chronic obstructive pulmonary disease, unspecified; K74.60 Unspecified cirrhosis of liver; E11.9 Type 2 diabetes mellitus without complications; G89.29 Other chronic pain; F32.9 Major depressive disorder, single episode, unspecified; Z85.05 Personal history of malignant neoplasm of liver; Z86.73 Personal history of transient ischemic attack (TIA), and cerebral infarction without residual deficits; Z90.49 Acquired absence of other specified parts of digestive tract; Z95.1 Presence of aortocoronary bypass graft; Z98.890 Other specified postprocedural states; Z88.8 Allergy status to other drugs, medicaments and biological substances; Z72.89 Other problems related to lifestyle; Z79.899 Other long term (current) drug therapy; Z79.82 Long term (current) use of aspirin; Z82.49 Family history of ischemic heart disease and other diseases of the circulatory system; Z83.79 Family history of other diseases of the digestive system
CPT/HCPCS: 49083; P9047

== ENCOUNTER 2020-01-05 16:48 | Emergency (ER) | payer MEDICARE, OTHER ==
[~2020-01-05] VITALS: Ht 167.6 cm; Wt 67.3 kg
[2020-01-05] MEDS ORDERED: methylPREDNISolone sod succ 125mg/2ml vial IV ONE (17:30)
[2020-01-05] MEDS ORDERED: ipratropium/albuterol 3ml nebule NEB ONE (17:30)
[2020-01-05 17:59] LABS: BASOPHILS % (AUTO) 0.4 % (0-1); EOSINOPHILS % (AUTO) 1.1 % (0-6); HEMATOCRIT 31.6 % (42.0-52.0); HEMOGLOBIN 10.7 g/dl (14.0-17.9); LYMPHOCYTES # (AUTO) 0.3 X10'3 (1.1-4.8); LYMPHOCYTES % (AUTO) 7.4 % (21-51); MEAN CORPUSCULAR HEMOGLOBIN 36.7 PG (27.0-31.0); MEAN CORPUSCULAR VOLUME 108.1 FL (78-98); MEAN PLATELET VOLUME 9.5 FL (7.4-10.4); MONOCYTES # (AUTO) 0.4 X10'3 (0-0.9); NEUTROPHILS # (AUTO) 3.7 X10'3 (1.8-7.7); NEUTROPHILS % (AUTO) 83.1 % (42-75); RED BLOOD COUNT 2.93 X10'6 (4.70-6.10); WHITE BLOOD COUNT 4.4 X10'3 (4.5-11.0)
[2020-01-05 18:04] LABS: PLATELET COUNT 42 X10'3 (140-440)
[2020-01-05] MEDS ORDERED: albuterol 2.5 MG/3 ML nebule NEB ONE (18:15)
[2020-01-05 18:22] LABS: ALANINE AMINOTRANSFERASE 34 U/L (12-78); ALBUMIN/GLOBULIN RATIO 0.5 (1.1-1.5); ALKALINE PHOSPHATASE 245 IU/L (46-116); ANION GAP 5 (8-16); ASPARTATE AMINO TRANSFERASE 60 U/L (10-37); BILIRUBIN,TOTAL 2.5 MG/DL (0.1-1.0); BLOOD UREA NITROGEN 12 MG/DL (7-18); BUN/CREATININE RATIO 11.7 (5.4-32.0); CALCIUM 7.5 MG/DL (8.5-10.1); CHLORIDE 103 MMOL/L (99-107); CREATININE 1.03 MG/DL (0.60-1.10); GLUCOSE 193 MG/DL (70-104); POTASSIUM 3.4 MMOL/L (3.5-5.1); SODIUM 136 MMOL/L (135-145); TOTAL CARBON DIOXIDE 28.2 MMOL/L (24-32); TOTAL PROTEIN 6.2 G/DL (6.4-8.2); eGFR 70 ML/MIN
[2020-01-05] MEDS ORDERED: PRED20TA PO (18:34)
[2020-01-05] MEDS ORDERED: ALBU6.7H9 INH (18:34)
[2020-01-05 19:34] VITALS: BP 117/72
== END 2020-01-05 19:35 | disposition home or self-care (01) ==
LOC: ER 16:48
DX: J44.1 Chronic obstructive pulmonary disease with (acute) exacerbation (principal); C22.9 Malignant neoplasm of liver, not specified as primary or secondary; R06.02 Shortness of breath; I25.10 Atherosclerotic heart disease of native coronary artery without angina pectoris; E78.00 Pure hypercholesterolemia, unspecified; I10 Essential (primary) hypertension; I25.2 Old myocardial infarction; E11.9 Type 2 diabetes mellitus without complications; G89.29 Other chronic pain; F32.9 Major depressive disorder, single episode, unspecified; Z86.73 Personal history of transient ischemic attack (TIA), and cerebral infarction without residual deficits; Z85.05 Personal history of malignant neoplasm of liver; Z90.49 Acquired absence of other specified parts of digestive tract; Z98.890 Other specified postprocedural states; Z88.8 Allergy status to other drugs, medicaments and biological substances; Z79.82 Long term (current) use of aspirin; Z79.899 Other long term (current) drug therapy
CPT/HCPCS: 36415; 49083; 71045; 80053; 83880; 85025; 93005; 94640; 96374; 99285; J2930; P9047; 94760

== ENCOUNTER 2020-01-29 06:55 | Day surgery (SDC) | payer MEDICARE, OTHER ==
[~2020-01-29] VITALS: Ht 167.6 cm; Wt 66.4 kg
[2020-01-29] VITALS (10 sets, daily range): BP systolic 94–116; BP diastolic 45–64
[~2020-01-29 06:55] MED LIST changes: +ALBU6.7H9 INH; -ROSU40TA PO
[2020-01-29] MEDS ORDERED: albumin 25% 100mL bottle x 1 IV PRN (07:15)
== END 2020-01-29 11:00 | disposition home or self-care (01) ==
LOC: SSTAY O 06:55
PROVIDERS: ATTEND Radiology Vascular & Interventional Radiology
DX: R18.8 Other ascites (principal); I25.10 Atherosclerotic heart disease of native coronary artery without angina pectoris; E78.00 Pure hypercholesterolemia, unspecified; I10 Essential (primary) hypertension; I25.2 Old myocardial infarction; J44.9 Chronic obstructive pulmonary disease, unspecified; K74.60 Unspecified cirrhosis of liver; E11.9 Type 2 diabetes mellitus without complications; G89.29 Other chronic pain; F32.9 Major depressive disorder, single episode, unspecified; Z90.49 Acquired absence of other specified parts of digestive tract; Z98.890 Other specified postprocedural states; Z95.5 Presence of coronary angioplasty implant and graft; Z72.89 Other problems related to lifestyle; Z88.8 Allergy status to other drugs, medicaments and biological substances; Z79.899 Other long term (current) drug therapy; Z85.05 Personal history of malignant neoplasm of liver; Z79.84 Long term (current) use of oral hypoglycemic drugs; Z79.82 Long term (current) use of aspirin; Z82.49 Family history of ischemic heart disease and other diseases of the circulatory system
CPT/HCPCS: 49083; P9047

== ENCOUNTER 2020-02-09 06:28 | Day surgery (SDC) | payer MEDICARE, OTHER ==
[~2020-02-09] VITALS: Ht 167.6 cm; Wt 66.2 kg
[2020-02-09] VITALS (9 sets, daily range): BP systolic 82–110; BP diastolic 39–54
[2020-02-09] MEDS ORDERED: normal saline 1000ml 1,000 ML IV PRN (07:05)
[2020-02-09] MEDS ORDERED: albumin 25% 100mL bottle x 1 IV PRN (07:05)
== END 2020-02-09 10:00 | disposition home or self-care (01) ==
LOC: SSTAY O 06:28
PROVIDERS: ATTEND Radiology Diagnostic Radiology
DX: R18.8 Other ascites (principal); I25.10 Atherosclerotic heart disease of native coronary artery without angina pectoris; E78.00 Pure hypercholesterolemia, unspecified; I10 Essential (primary) hypertension; I25.2 Old myocardial infarction; J44.9 Chronic obstructive pulmonary disease, unspecified; K74.60 Unspecified cirrhosis of liver; G89.29 Other chronic pain; E11.9 Type 2 diabetes mellitus without complications; F32.9 Major depressive disorder, single episode, unspecified; Z90.49 Acquired absence of other specified parts of digestive tract; Z86.73 Personal history of transient ischemic attack (TIA), and cerebral infarction without residual deficits; Z95.1 Presence of aortocoronary bypass graft; Z98.890 Other specified postprocedural states; Z72.89 Other problems related to lifestyle; Z88.8 Allergy status to other drugs, medicaments and biological substances; Z79.899 Other long term (current) drug therapy; Z79.84 Long term (current) use of oral hypoglycemic drugs; Z85.05 Personal history of malignant neoplasm of liver; Z82.49 Family history of ischemic heart disease and other diseases of the circulatory system
CPT/HCPCS: 49083; P9047

== ENCOUNTER 2020-02-10 21:37 | Emergency (ER) | payer MEDICARE, OTHER ==
[~2020-02-10] VITALS: Ht 167.6 cm; Wt 63.2 kg
[2020-02-10 22:15] LABS: BASOPHILS % (AUTO) 0.2 % (0-1); EOSINOPHILS # (AUTO) 0.1 X10'3 (0-0.9); EOSINOPHILS % (AUTO) 1.4 % (0-6); HEMOGLOBIN 11.4 g/dl (14.0-17.9); LYMPHOCYTES # (AUTO) 0.4 X10'3 (1.1-4.8); MEAN CORPUSCULAR HEMOGLOBIN 36.1 PG (27.0-31.0); MEAN CORPUSCULAR HGB CONC 33.6 g/dL (33.0-36.5); MEAN CORPUSCULAR VOLUME 107.5 FL (78-98); MEAN PLATELET VOLUME 10.8 FL (7.4-10.4); MONOCYTES # (AUTO) 0.5 X10'3 (0-0.9); MONOCYTES % (AUTO) 7.2 % (2-12); NEUTROPHILS # (AUTO) 5.9 X10'3 (1.8-7.7); NEUTROPHILS % (AUTO) 85.2 % (42-75); PLATELET COUNT 59 X10'3 (140-440); RED BLOOD COUNT 3.16 X10'6 (4.70-6.10); RED CELL DISTRIBUTION WIDTH 15.8 % (11.5-14.5); WHITE BLOOD COUNT 6.9 X10'3 (4.5-11.0)
--- NOTE | 2020-02-10 22:18 | NUR ---
X RAY AT BEDSIDE
[2020-02-10 22:29] LABS: ALANINE AMINOTRANSFERASE 54 U/L (12-78); ALKALINE PHOSPHATASE 354 IU/L (46-116); ANION GAP 7 (8-16); ASPARTATE AMINO TRANSFERASE 82 U/L (10-37); BILIRUBIN,TOTAL 3.9 MG/DL (0.1-1.0); BLOOD UREA NITROGEN 13 MG/DL (7-18); BUN/CREATININE RATIO 14.9 (5.4-32.0); CALCIUM 7.8 MG/DL (8.5-10.1); CHLORIDE 102 MMOL/L (99-107); CREATININE 0.87 MG/DL (0.60-1.10); GLUCOSE 180 MG/DL (70-104); POTASSIUM 3.3 MMOL/L (3.5-5.1); SODIUM 134 MMOL/L (135-145); TOTAL CARBON DIOXIDE 24.9 MMOL/L (24-32); eGFR 86 ML/MIN
[2020-02-10 22:37] LABS: TROPONIN I < 0.04 NG/ML (0.0-0.05)
--- NOTE | 2020-02-10 22:39 | NUR ---
PT TRIED TO VOID. HE STATES HE WILL TRY AGAIN
[2020-02-10 22:41] LABS: ALBUMIN/GLOBULIN RATIO 0.5 (1.1-1.5)
[2020-02-11 00:31] LABS: CLARITY,URINE CLEAR (Clear); COLOR,URINE ORANGE (Yellow); GLUCOSE, URINE 100 mg/dl (Neg); KETONES,URINE NEGATIVE (Neg); LEUKOCYTE ESTERASE ,URINE NEGATIVE (Neg); NITRITES, URINE NEGATIVE (Neg); OCCULT BLOOD,URINE NEGATIVE (Neg); PROTEIN,URINE NEGATIVE (Neg); UA COLLECTION TYPE URINAL; UROBILINOGEN,URINE >=8.0 E.U/dL (0.2-1.0)
[2020-02-11 01:14] VITALS: BP 103/57
== END 2020-02-11 01:51 | disposition home or self-care (01) ==
LOC: ER 21:38
DX: R42 Dizziness and giddiness (principal); R14.0 Abdominal distension (gaseous); I25.10 Atherosclerotic heart disease of native coronary artery without angina pectoris; E78.00 Pure hypercholesterolemia, unspecified; I10 Essential (primary) hypertension; I25.2 Old myocardial infarction; J44.9 Chronic obstructive pulmonary disease, unspecified; E11.9 Type 2 diabetes mellitus without complications; G89.29 Other chronic pain; Z86.73 Personal history of transient ischemic attack (TIA), and cerebral infarction without residual deficits; Z95.5 Presence of coronary angioplasty implant and graft; Z90.49 Acquired absence of other specified parts of digestive tract; Z95.1 Presence of aortocoronary bypass graft; Z98.890 Other specified postprocedural states; Z79.82 Long term (current) use of aspirin; Z79.899 Other long term (current) drug therapy; Z88.8 Allergy status to other drugs, medicaments and biological substances; W01.198A Fall on same level from slipping, tripping and stumbling with subsequent striking against other object, initial encounter; Y93.01 Activity, walking, marching and hiking; Y92.091 Bathroom in other non-institutional residence as the place of occurrence of the external cause; Y99.9 Unspecified external cause status
CPT/HCPCS: 36415; 70450; 71045; 72125; 80053; 81003; 83880; 84484; 85025; 93005; 99285